=== PATIENT | female | born 1995 | race Hispanic/Latino ===

== ENCOUNTER 2024-07-04 12:28 | Observation (INO) | payer SELFPAY ==
[~2024-07-04] VITALS: Ht 170.2 cm; Wt 85.3 kg
[2024-07-04 12:29] VITALS: BP 125/86; PULSE 95; RESP 16; TEMP 97.6
[2024-07-04] MEDS ORDERED: LACTATED RINGERS 1000ML 1,000 ML IV SCH (13:00)
[2024-07-04 14:01] LABS: APPEARANCE,URINE CLOUDY (CLEAR); BILIRUBIN,URINE NEGATIVE (NEGATIVE); COLOR,URINE LIGHT-YELLOW (YELLOW); GLUCOSE, URINE (UA) NEGATIVE (NEGATIVE); KETONES,URINE NEGATIVE (NEGATIVE); LEUKOCYTE ESTERASE ,URINE 500 Leu/uL (NEGATIVE); NITRATE,URINE NEGATIVE (NEGATIVE); OCCULT BLOOD,URINE NEGATIVE (NEGATIVE); PH,URINE 6.5 (5.0-8.0); PROTEIN,URINE NEGATIVE (NEGATIVE); UROBILINOGEN,URINE 0.2 mg/dL (0.2-1.0)
[2024-07-04 14:02] LABS: ADD UA MICROSCOPIC YES
[2024-07-04 14:04] LABS: BACTERIA,URINE RARE /HPF (None Seen); MUCUS,URINE RARE LPF (None Seen); SQUAMOUS EPITHELIAL CELL,UR MOD /HPF (0-2)
== END 2024-07-04 14:22 | disposition home or self-care (01) ==
LOC: EDH 12:28 → LDH 12:29 → EDH 12:34
PROVIDERS: ADMIT Obstetrics & Gynecology; ATTEND Obstetrics & Gynecology
DX: O62.9 Abnormality of forces of labor, unspecified (principal); Z3A.38 38 weeks gestation of pregnancy; Z79.899 Other long term (current) drug therapy; Z98.890 Other specified postprocedural states
CPT/HCPCS: 87086; 81001; G0378 ×2; G0379; 59025